=== PATIENT | male | born 1955 | race Caucasian/White ===

== ENCOUNTER 2017-10-16 19:38 | Emergency (ER) | payer BC ==
[~2017-10-16] VITALS: Ht 175.3 cm; Wt 71.9 kg
[2017-10-16 19:40] VITALS: Ht 175.3 cm; Wt 71.9 kg
[2017-10-16] MEDS ORDERED: LORAZEPAM 2 MG/ML 1 ML VIAL IV STA (19:48)
[2017-10-16] MEDS ORDERED: GLUCAGON FOR INJ 1 MG VIAL IV STA (19:48)
[2017-10-16] MEDS ORDERED: NITROGLYCERIN 0.4 MG SL PER TAB CHARGE SL STA (19:48)
--- NOTE | 2017-10-16 20:39 | EMERGENCY ROOM VISIT NOTE ---
History Report prepared by Reema: Guido Calloway Under the Supervision of: Dr. Karsten Johnson M.D. First contact with patient: 19:43 Chief Complaint: FOOD BOLUS Stated Complaint: FOOD STUCK IN THROAT History of Present Illness The patient is a 62 year old male who presents to the Emergency Room with complaints of food lodged in his throat that occurred during lunch today at 1430 , about 5 hours and 15 minutes ago. The patient states that he had two bites of a hamburger and a couple fries when the food became lodged. Since the food got stuck, he has been spitting saliva constantly and nothing can make it down the esophagus. He denies any breathing problems. He states that he has noticed that swallowing is more difficult since he has had throat cancer and reconstruction surgery on his jaw. He reports that this is the second time something like this has happened with the last episode occurring about a year ago. Source of History: patient Onset: 5 hours and 15 minutes ago Position: throat Quality: other (Food bolus) Modifying Factors (Worsening): other (Swallowing) Associated Symptoms: No SOB Review of Systems See HPI for pertinent positives & negatives. A total of 10 systems reviewed and were otherwise negative. Past Medical & Surgical Medical Problems: (1) Throat cancer Surgical Problems: (1) History of mandibular surgery Family History Patient reports no known family medical history. Social History Smoking Status: Never Smoker Marital Status: Housing Status: lives with significant other Allergies Coded Allergies: No Known Allergies (Unverified , 10/16/17) Physical Exam Vital Signs Date Time Temp Pulse Resp B/P (MAP) Pulse Ox O2 Delivery O2 Flow Rate FiO2 10/16/17 23:30 63 16 149/86 (107) 99 10/16/17 23:15 67 16 162/99 (120) 99 Room Air 10/16/17 23:07 36.3 68 16 135/ (45) 96 Room Air 10/16/17 23:07 36.3 64 16 135/81 96 Room Air 10/16/17 23:06 63 6 145/95 96 Room Air 10/16/17 22:55 66 18 137/90 97 10/16/17 22:45 67 16 129/96 96 Room Air 10/16/17 22:35 68 16 145/80 99 Oxymask 10 10/16/17 22:26 36.4 69 16 143/84 99 Oxymask 10 10/16/17 21:05 68 16 147/94 98 10/16/17 20:38 73 18 10/16/17 20:16 183/111 10/16/17 19:40 36.5 86 20 181/117 95 Room Air Physical Exam GENERAL: Patient is in no acute distress. Spitting out saliva. HEENT: No acute trauma, normocephalic atraumatic, mucous membranes moist, no nasal congestion, no scleral icterus. No throat erythema or swelling. No obvious foreign debris. NECK: No stridor, no adenopathy, no meningismus, trachea is midline. LUNGS: Clear to auscultation bilaterally, no wheeze, no rhonchi, breath sounds equal. HEART: Without murmurs gallops or rubs, regular rate and rhythm. ABDOMEN: Soft, nontender, bowel sounds positive, no hernias, no peritonitis. EXTREMITIES: No cyanosis or edema, full range of motion of all the joints without pain or difficulty, no signs for acute trauma. NEUROLOGIC: Oriented x 3, no acute motor or sensory deficits, no focal weakness. SKIN: No rash, no jaundice, no diaphoresis. Medical Decision & Procedures Medications Administered Medications (Trade) Dose Ordered Sig/Vandana Route Start Time Stop Time Status Last Admin Dose Admin Glucagon (Glucagon Inj) 2 mg NOW STAT IV 10/16/17 19:48 10/16/17 19:50 DC 10/16/17 19:48 2 MG Lorazepam (Ativan Inj) 1 mg NOW STAT IV 10/16/17 19:48 10/16/17 19:50 DC 10/16/17 20:16 1 MG Nitroglycerin (Nitrostat Tab) 0.4 mg 1947 STAT SL 10/16/17 19:48 10/16/17 19:50 DC 10/16/17 20:16 0.4 MG ED Course 1944: The patient was evaluated in room A2. A complete history and physical exam was performed. 2024: I reevaluated the patient after he received his medications. He thinks that he can now swallow but still feels something there. I am going to get him water to check his ability to swallow. 2043: The patient failed the water test so I am going to call GI. 2047: I spoke with Dr. Kimber SOSA about the patients case and he is going to come see the patient. 2117: Upon reexamination the patient is resting in bed. I discussed results and treatment plan with the patient. He verbalizes agreement and understanding. I spoke with Dr. Quiroga of the Gastrointestinal unit . We discussed the patient's results and findings. The patient will be evaluated by Dr. Quiroga for further management. Medical Decision Differential Diagnosis Esophageal narrowing, esophageal food bolus, esophageal stricture, esophageal dysmotility, choking episode, and esophageal rupture The patient presents with what sounds like an esophageal food bolus. He has had some issues with swallowing over the last couple of years. On exam, he was spitting out his saliva. He could not swallow liquids. The patient was given IV glucagon, sublingual nitroglycerin and IV Ativan. After about 30 minutes, he still could not swallow liquids or his saliva. I did speak with the on-call GI physician. The patient is going to the endoscopy lab for removal of the food bolus. Medication Reconcilliation Current Medication List: was personally reviewed by me Blood Pressure Screening Patient's blood pressure: Elevated blood pressure Blood pressure disposition: Elevated BP felt to be situational Consults Time Called: 2044 Consulting Physician: Dr. Quiroga - Christian Returned Call: 2047 Discussed the patient's case with Dr. Kimber Gonzales. The patient will be evaluated for further management by him. Impression Primary Impression: Esophageal obstruction due to food impaction Scribe Attestation The scribe's documentation has been prepared under my direction and personally reviewed by me in its entirety. I confirm that the note above accurately reflects all work, treatment, procedures, and medical decision making performed by me. Departure Information Dispostion Other (Transfer to GI lab) Referrals No Doctor, Assigned (PCP) Forms HOME CARE DOCUMENTATION FORM, IMPORTANT VISIT INFORMATION, WORK / SCHOOL INSTRUCTIONS Patient Instructions My [facility] [employer]
[2017-10-16 21:05] VITALS: O2SAT 98
--- NOTE | 2017-10-16 21:06 | Gastrointestinal Consultation ---
Gastrointestinal Consultation Date of Consultation: Oct 16, 2017 Attending Physician: Niyah Quiroga Consulting Physician: Karsten Johnson Reason for Consultation: Food impaction History of Present Illness Patient is a 62 year old male with Hx of Throat cancer s/p surgical intervention , presented with symptoms of dysphagia and food impaction after eating lunch, had Burger and fries. Since then, not able to swallow his saliva. Had similar impaction few months ago that resolved spontaneously. Denies SOB or chest pain, no abdominal pain or hematemesis. Past Medical/Surgical History Past Medical History: as above Past Surgical History: Throat surgery Family History Patient reports no known family medical history. Social History Smoking Status: Never Smoker Marital Status: Housing Status: lives with significant other Allergies Coded Allergies: No Known Allergies (Unverified , 10/16/17) Review of Systems Constitutional: No fever, No chills Eyes: No worsening of vision, No eye pain ENT: No hearing loss, No unusual epistaxis Respiratory: No cough, No sputum Cardiac: No chest pain, No orthopnea Abdomen: + see HPI Musculoskeletal: No joint pain, No muscle pain Male : No dysuria, No urinary frequency Neuro: No paralysis, No weakness Psych: No anxiety Heme: No abnormal bleeding/bruising Endo: No fatigue Skin: No rash Physical Exam Date Time Temp Pulse Resp B/P (MAP) Pulse Ox O2 Delivery O2 Flow Rate FiO2 10/16/17 20:38 73 18 10/16/17 20:16 183/111 10/16/17 19:40 36.5 86 20 181/117 95 Room Air General Appearance: no apparent distress Eyes: PERRL ENT: pharynx normal Neck: supple, no JVD Respiratory/Chest: lungs clear Cardiovascular: regular rate, rhythm Abdomen: normal bowel sounds, non tender, soft Neurologic/Psych: alert, oriented x 3 Skin: no jaundice Impression Patient is a 62 year old male with dysphagia and possible food impaction and sing of partial obstruction. Plan Emergent EGD. He was explained the risk, benefit and alternatives and agrees.
[2017-10-16] MEDS ORDERED: MIDAZOLAM HCL 1 MG/ML 2ML VIAL ONE (21:33)
[2017-10-16] MEDS ORDERED: PROPOFOL IV EMULSION 10 MG/ML 20 ML VIAL ONE (21:33)
[2017-10-16] MEDS ORDERED: LIDOCAINE HCL 2% 2 ML VIAL (20MG/ML) ONE (21:33)
[2017-10-16] MEDS ORDERED: ONDANSETRON INJ 2 MG/ML 2 ML VIAL ONE (22:01)
[2017-10-16] MEDS ORDERED: PHENYLEPHRINE HCL INJ 10 MG/ML VIAL ONE (22:01)
--- NOTE | 2017-10-16 22:16 | [facility] Post Operative Brief Note ---
Immediate Operative Summary Operative Date Oct 16, 2017. Pre-Operative Diagnosis dysphagia and food impaction Post-Operative Diagnosis dysphagia and food impaction, esophageal stricture Procedure(s) Performed ESOPHAGOGASTRODUEDENOSCOPY, removal of foreign body, stricture dilation Surgeon Dr. Quiroga [employer] Surgeon(s) none Estimated Blood Loss 0 Findings Consistent with Post-Op Diagnosis Specimens All specimens handled by endo staff Anesthesia Type General
--- NOTE | 2017-10-16 22:33 | GI REPORT ---
Patient Name: Vipul Madden Procedure Date: 10/16/2017 9:44 PM Date of : 1955 Admit Type: Emergency Department Age: 62 Gender: Male Attending MD: Niyah Quiroga MD Procedure: Upper GI endoscopy Providers: Niyah Quiroga MD Referring MD: Karsten Johnson Md, Toney Day Indications: Dysphagia, Foreign body in the esophagus Medicines: General Anesthesia Complications: No immediate complications. Estimated Blood Loss: Estimated blood loss: none. Procedure: Pre-Anesthesia Assessment: - Prior to the procedure, a History and Physical was performed, and patient medications and allergies were reviewed. The patient is competent. The risks and benefits of the procedure and the sedation options and risks were discussed with the patient. All questions were answered and informed consent was obtained. Patient identification and proposed procedure were verified by the physician and the nurse in the procedure room. Mental Status Examination: alert and oriented. Airway Examination: normal oropharyngeal airway and neck mobility. Respiratory Examination: clear to auscultation. CV Examination: normal. ASA Grade Assessment: E - Emergency. After reviewing the risks and benefits, the patient was deemed in satisfactory condition to undergo the procedure. The anesthesia plan was to use general anesthesia. Immediately prior to administration of medications, the patient was re-assessed for adequacy to receive sedatives. The heart rate, respiratory rate, oxygen saturations, blood pressure, adequacy of pulmonary ventilation, and response to care were monitored throughout the procedure. The physical status of the patient was re-assessed after the procedure. After obtaining informed consent, the endoscope was passed under direct vision. Throughout the procedure, the patient's blood pressure, pulse, and oxygen saturations were monitored continuously. The Scope was introduced through the mouth, and advanced to the second part of duodenum. The upper GI endoscopy was accomplished without difficulty. The patient tolerated the procedure well. Findings: Food was found impacted in the upper third of the esophagus. Removal of food was accomplished with luciano net and sliding down to the stomach. A benign-appearing, intrinsic mild stenosis measuring 1 cm (in length) x around 12-14 mm (inner diameter) was found 19 cm from the incisors and was traversed. A TTS dilator was passed through the scope. Dilation with a 12-13.5-15 mm balloon dilator was performed to 15 mm. Biopsies were taken with a cold forceps for histology. Verification of patient identification for the specimen was done by the physician and nurse using the patient's name and date. The area around the stenosis has evidence of esophagitis secondary to radio-chemotherapy. The entire examined stomach was normal. The duodenal bulb and 2nd part of the duodenum were normal. Impression: - Impacted food in the upper third of the esophagus. Removal was successful. - Benign-appearing esophageal stricture. Dilated up to 15mm. Biopsied. 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 - Normal stomach. - Normal duodenal bulb and 2nd part of the duodenum. Recommendation: - Discharge patient to home (with escort). - Soft diet indefinitely. - Await pathology results. - Advised to eat small bites and chew the food very well. - Repeat the upper endoscopy in 4-6 weeks for retreatment. Niyah Quiroga MD 10/16/2017 10:33:50 PM This report has been signed electronically. Note Initiated On: 10/16/2017 9:44 PM Number of Addenda: 0 I attest to the content of the Intraoperative Record and orders documented therein, exceptions below {[id number]}
--- NOTE | 2017-10-16 22:36 | Discharge Instructions ---
Endoscopy Patient Instructions Date / Procedure(s) Performed Oct 16, 2017. EGD Allergy Information Coded Allergies: No Known Allergies (Unverified , 10/16/17) Discharge Date / Findings Oct 16, 2017. Food impaction in esophagus. 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 Provider Instructions Activity Restrictions - No exercising or heavy lifting for 24 hours. - Do not drink alcohol the day of the procedure. - Do not drive a car or operate machinery until the day after the procedure. - Do not make any important decisions or sign important papers in 24 hours after the procedure. Following Day: - Return to full activity which may include returning to work/school. Diet Start your diet with liquids and light foods (jello, soup, juice, toast). Then eat your usual diet if not nauseated. Treatment For Common After Affects For mild abdominal pain, bloating, or excessive gas: - Rest - Eat lightly - Lie on right side Follow-Up Information Follow-up with as scheduled Anesthesia Information What You Should Know You have had a procedure that required some medicine to reduce anxiety and discomfort. This treatment is called moderate sedation. After receiving the treatment, you may be sleepy, but you will be able to breathe on your own. The effects of the treatment may last for several hours. Follow these instructions along with Activity/Diet recommendations noted above: * Do NOT do anything where dizziness or clumsiness would be dangerous. * Rest quietly at home today, then you can be up and about tomorrow. * Have a responsible person stay with you the rest of today. * You may have had an I.V. today. If so, you may take the dressing off later today. Recommendations Call your doctor if: * Trouble breathing * Continuous vomiting for more than 24 hours * Temperature above 101 degrees * Severe abdominal pain or bloating * Pain not relieved by pain medicine ordered * There is increased drainage or redness from any incision * A large amount of rectal bleeding greater than 2-3 tablespoons. (If you had a polyp/s removed or have hemorrhoids, a small amount of blood - from the rectum is to be expected.) * You have any unanswered questions or concerns. IN THE EVENT OF A SERIOUS EMERGENCY, GO TO THE NEAREST EMERGENCY ROOM Your discharge instructions were prepared by provider Niyah Quiroga. Patient Instructions Signature Page Vipul Madden Patient (or Guardian) Signature/Date: I have read and understand the instructions given to me by my caregivers. Caregiver/RN/Doctor Signature/Date: The above-named patient and/or guardian has received patient instructions on this date. + Original Patient Signature Page (only) stays with chart. Please make copy for patient.
[2017-10-16] MEDS ORDERED: ATROPINE SULFATE 0.1 MG/ML 5ML SYR IV PRN (22:45)
[2017-10-16] MEDS ORDERED: ONDANSETRON INJ 2 MG/ML 2 ML VIAL IV PRN (22:45)
[2017-10-16] MEDS ORDERED: EpHEDrine SULFATE INJ 50 MG/ML AMP IV PRN (22:45)
[2017-10-16] MEDS ORDERED: FENTANYL CITRATE INJ 50 MCG/1 ML 2 ML VIAL IV PRN (22:45)
--- NOTE | 2017-10-16 22:49 | Anesthesiology Progress Note ---
Anesthesia Post Op Note Date & Time Oct 16, 2017 at 22:48 Vital Signs Pain Intensity: 0 Vital Signs Past 12 Hours Date Time Temp Pulse Resp B/P (MAP) Pulse Ox O2 Delivery O2 Flow Rate FiO2 10/16/17 22:35 68 16 145/80 99 Oxymask 10 10/16/17 22:26 36.4 69 16 143/84 99 Oxymask 10 10/16/17 21:05 68 16 147/94 98 10/16/17 20:38 73 18 10/16/17 20:16 183/111 10/16/17 19:40 36.5 86 20 181/117 95 Room Air Notes Mental Status: alert / awake / arousable, participated in evaluation Pt Amnestic to Procedure: Yes Nausea / Vomiting: adequately controlled Pain: adequately controlled Airway Patency, RR, SpO2: stable & adequate BP & HR: stable & adequate Hydration State: stable & adequate Anesthetic Complications: no major complications apparent
[2017-10-16 23:07] VITALS: BP 135/81; PULSE 64; TEMP 36.3; O2SAT 96
[2017-10-16 23:30] VITALS: BP 149/86; PULSE 63; O2SAT 99
== END 2017-10-16 21:08 | disposition still patient (30) ==
LOC: C.EDB 19:39 → C.EDA 21:08
DX: T18.128A Food in esophagus causing other injury, initial encounter (principal); K22.2 Esophageal obstruction; Z85.818 Personal history of malignant neoplasm of other sites of lip, oral cavity, and pharynx; E03.9 Hypothyroidism, unspecified; Z79.899 Other long term (current) drug therapy; X58.XXXA Exposure to other specified factors, initial encounter